=== PATIENT | female | born 1955 | race Caucasian/White ===

== ENCOUNTER 2024-01-19 12:45 | Observation (INO) | payer SELFPAY ==
[2024-01-19] MEDS: Sodium Chloride 0.9% 1,000 ML IV ONE (13:05)
[2024-01-19] MEDS: Sodium Chloride 0.9% 10 ML Syringe FLUSH PRN (13:05)
[2024-01-19] MEDS: Sodium Chloride 0.9% 2.5 ML Syringe FLUSH PRN (13:05)
[2024-01-19 13:25] LABS: BASE EXCESS VENOUS -1.3 (-2.0-3.0); BICARBONATE,VENOUS 23 mEQ/mL (22-28); PCO2 VENOUS 34 mmHG (41-51); PH,VENOUS 7.44 (7.31-7.41); PO2 VENOUS 39 mmHG (35-45)
[2024-01-19 13:27] LABS: BASOPHILS ABSOLUTE AUTO 0.03 K/uL (0.00-0.20); EOSINOPHILS ABSOLUTE AUTO 0.14 K/uL (0.00-0.45); EOSINOPHILS PERCENT AUTO 4.6 % (0.0-6.0); HEMATOCRIT 25.2 % (37.0-47.0); HEMOGLOBIN 8.8 g/dL (12.0-16.0); LYMPHOCYTES ABSOLUTE AUTO 0.58 K/uL (1.00-4.80); LYMPHOCYTES PERCENT AUTO 19.1 % (24.0-44.0); MEAN CORPUSCULAR HEMOGLOBIN 32.4 pg (28.0-32.0); MEAN CORPUSCULAR HGB CONC 34.9 g/dL (32.0-36.0); MEAN CORPUSCULAR VOLUME 92.6 fL (83.0-99.0); MEAN PLATELET VOLUME 10.4 fL (9.4-12.3); MONOCYTES ABSOLUTE AUTO 0.28 K/uL (0.00-0.80); MONOCYTES PERCENT AUTO 9.2 % (0.0-8.0); NEUTROPHILS ABSOLUTE AUTO 2.01 K/uL (1.80-7.70); NEUTROPHILS PERCENT AUTO 66.1 % (41.0-71.0); RED BLOOD CELL COUNT 2.72 M/uL (4.10-5.30); WHITE BLOOD CELL COUNT,WBC 3.04 K/uL (3.9-11.3)
[2024-01-19 13:45] LABS: PLATELET COUNT,PLT 90 K/uL (150-400)
[2024-01-19 13:58] LABS: A/G RATIO 0.4 (0.9-1.6); ALBUMIN 2.2 g/dL (3.4-5.0); BILIRUBIN TOTAL 1.7 mg/dL (0.2-1.0); CALCIUM 10.5 mg/dL (8.5-10.1); CARBON DIOXIDE,CO2 24.1 mmol/L (21.0-32.0); CREATININE 1.6 mg/dL (0.6-1.0); EST CRCL DRUG DOSING (CG) 29.44 mL/min; POTASSIUM,K 4.9 mmol/L (3.5-5.1); PROTEIN TOTAL,TP 7.4 g/dL (6.4-8.2)
[2024-01-19 14:10] LABS: APPEARANCE,URINE SLT CLOUDY; BILIRUBIN,URINE NEGATIVE (NEGATIVE); COLOR,URINE YELLOW; GLUCOSE,URINE >=1000 mg/dL (NEGATIVE); KETONES,URINE NEGATIVE (NEGATIVE); LEUKOCYTE ESTERASE,URINE TRACE (NEGATIVE); NITRITE,URINE NEGATIVE (NEGATIVE); OCCULT BLOOD,URINE LARGE (NEGATIVE); PROTEIN,URINE 30 mg/dL (NEGATIVE); UROBILINOGEN,URINE 0.2 EU/dL (<2.0)
[2024-01-19] MEDS ORDERED: Glucagon,Human Recombinant 1 MG Vial IM PRN ×2 (14:13→15:42)
[2024-01-19] MEDS ORDERED: 50% Dextrose in Water 50 ML Syringe IVPUSH PRN ×2 (14:13→15:42)
[2024-01-19 14:19] LABS: BACTERIA,URINE FEW (NEGATIVE); EPITHELIAL CELLS,URINE FEW (NONE-FEW); WBC,URINE 50-60 (0-5/HPF); YEAST,URINE MANY
[2024-01-19] MEDS: Insulin Regular, Human 100 Units/ML 10 ML Vial IVPUSH ONE (14:40)
[2024-01-19] MEDS: cefTRIAXone 1 GM in Sodium Chloride 0.9% 50 ML IV ONE (14:41)
[2024-01-19] MEDS ORDERED: Naloxone 0.4 MG/ML SDV IVPUSH PRN (15:30)
[2024-01-19] MEDS ORDERED: Ondansetron 4 MG Tab.DIS PO PRN (15:30)
[2024-01-19] MEDS ORDERED: Morphine 2 MG/ML SYRINGE IVPUSH PRN (15:30)
[2024-01-19] MEDS ORDERED: Acetaminophen 325 MG Tab PO PRN (15:30)
[2024-01-19] MEDS ORDERED: Ondansetron 4 MG/2 ML SDV IVPUSH PRN (15:30)
[2024-01-19] MEDS ORDERED: Polyethylene Glycol 3350 Powder 17 GM Packet PO PRN (15:30)
[2024-01-19] MEDS: Sodium Chloride 0.9% 1,000 ML IV SCH (16:32)
[2024-01-19] MEDS: Insulin Aspart 100 Units/ML 3 ML Pen SUBCUT SCH (16:37)
[2024-01-19 19:05] LABS: CALCIUM 10.3 mg/dL (8.5-10.1); CARBON DIOXIDE,CO2 23.1 mmol/L (21.0-32.0); CREATININE 1.3 mg/dL (0.6-1.0); EST CRCL DRUG DOSING (CG) 36.23 mL/min
[2024-01-19] MEDS: Losartan 50 MG Tab PO SCH (19:46)
[2024-01-19] MEDS: Gabapentin 100 MG Cap PO SCH (19:46)
[2024-01-19] MEDS: Insulin Glargine,Hum.Rec.Anlog 100 UNIT/ML 3 ML Pen SUBCUT SCH (20:23)
[2024-01-19] MEDS: cefTRIAXone 1 GM Vial IM ONE (20:26)
[2024-01-19] MEDS ORDERED: Insulin Glargine,Hum.Rec.Anlog 100 UNIT/ML 3 ML Pen SUBCUT SCH (21:00)
[2024-01-19 21:32] LABS: TSH ULTRASENSITIVE 1.52 uIU/mL (0.36-3.74)
[2024-01-19] MEDS: Lactulose Soln 10 GM/15 ML 15 ML UD Cup PO SCH (21:33)
[2024-01-20] MEDS: Lactulose Soln 10 GM/15 ML 15 ML UD Cup PO SCH (03:07)
[2024-01-20 05:48] LABS: BASOPHILS ABSOLUTE AUTO 0.02 K/uL (0.00-0.20); BASOPHILS PERCENT AUTO 0.6 % (0.0-1.0); EOSINOPHILS ABSOLUTE AUTO 0.25 K/uL (0.00-0.45); EOSINOPHILS PERCENT AUTO 7.9 % (0.0-6.0); HEMATOCRIT 22.1 % (37.0-47.0); HEMOGLOBIN 7.8 g/dL (12.0-16.0); LYMPHOCYTES ABSOLUTE AUTO 0.88 K/uL (1.00-4.80); LYMPHOCYTES PERCENT AUTO 27.7 % (24.0-44.0); MEAN CORPUSCULAR HEMOGLOBIN 32.5 pg (28.0-32.0); MEAN CORPUSCULAR HGB CONC 35.3 g/dL (32.0-36.0); MEAN CORPUSCULAR VOLUME 92.1 fL (83.0-99.0); MEAN PLATELET VOLUME 11.2 fL (9.4-12.3); MONOCYTES ABSOLUTE AUTO 0.33 K/uL (0.00-0.80); MONOCYTES PERCENT AUTO 10.4 % (0.0-8.0); NEUTROPHILS PERCENT AUTO 53.4 % (41.0-71.0); WHITE BLOOD CELL COUNT,WBC 3.18 K/uL (3.9-11.3)
[2024-01-20 06:02] LABS: PLATELET COUNT,PLT 75 K/uL (150-400)
[2024-01-20 06:10] LABS: A/G RATIO 0.4 (0.9-1.6); ALBUMIN 1.8 g/dL (3.4-5.0); BILIRUBIN TOTAL 1.6 mg/dL (0.2-1.0); CALCIUM 9.9 mg/dL (8.5-10.1); CARBON DIOXIDE,CO2 24.1 mmol/L (21.0-32.0); CREATININE 1.3 mg/dL (0.6-1.0); EST CRCL DRUG DOSING (CG) 36.23 mL/min; MAGNESIUM 1.6 mg/dL (1.8-2.4); PHOSPHORUS 3.2 mg/dL (2.6-4.7); POTASSIUM,K 4.4 mmol/L (3.5-5.1); PROTEIN TOTAL,TP 6.1 g/dL (6.4-8.2)
[2024-01-20] MEDS: Pantoprazole 40 MG Tab.CR PO SCH (06:30)
[2024-01-20] MEDS: Magnesium Sulfate/Water 2 GM in Premix Bag 1 BAG IV ONE (07:35)
[2024-01-20] MEDS: Spironolactone 25 MG Tab PO SCH (10:48)
[2024-01-20] MEDS: Furosemide 20 MG Tab PO SCH (10:48)
[2024-01-20 13:49] LABS: HEMOGLOBIN A1C 12.7 %
[2024-01-20] MEDS: cefTRIAXone 1 GM in Sodium Chloride 0.9% 50 ML IV SCH (14:23)
== END 2024-01-20 15:30 | disposition home or self-care (01) ==
LOC: MW.ED 12:45 → MW.MS 15:25
PROVIDERS: ADMIT Family Medicine; ATTEND Family Medicine
DX: E11.65 Type 2 diabetes mellitus with hyperglycemia (principal); I10 Essential (primary) hypertension; D61.818 Other pancytopenia; N39.0 Urinary tract infection, site not specified; Z79.4 Long term (current) use of insulin; Z79.899 Other long term (current) drug therapy
CPT/HCPCS: 36415; 70450; 71045; 80048; 80053; 81001; 82140; 82607; 82803; 82947; 83036; 83605; 83735; 83880; 84100; 84443; 84484; 85025; 86850; 86900; 86901; 93005; 96361; 96365; 99285; A9270; J0696; J1815; J3475; J3490; J7030; 93010; 96366; 96367; 96376; G0378